=== PATIENT | male | born 1945 | race Caucasian/White ===

== ENCOUNTER 2020-07-13 11:35 | Emergency (ER) | payer MEDICARE, OTHER ==
[2020-07-13] MEDS ORDERED: PREDNISONE 20MG20 MG PO (12:30)
== END 2020-07-13 13:00 | disposition home or self-care (01) ==
LOC: FER 11:35
DX: T78.1XXA Other adverse food reactions, not elsewhere classified, initial encounter (principal); R22.0 Localized swelling, mass and lump, head; I10 Essential (primary) hypertension; Z88.1 Allergy status to other antibiotic agents; Z79.899 Other long term (current) drug therapy
CPT/HCPCS: J2930